=== PATIENT | male | born 1955 | race Caucasian/White ===

== ENCOUNTER 2021-10-31 13:43 | Outpatient (CLI) | payer MEDICARE, OTHER ==
--- NOTE | 2021-10-31 15:20 | XRAY Report ---
PROCEDURE: Ankle 3 View LT INDICATIONS: L ANKLE PX TECHNIQUE: 3 views of the ankle were acquired. COMPARISON: None FINDINGS: Bones: No acute fractures or dislocations. Chronic appearing calcifications are noted adjacent to th e medial malleolus. Similar findings noted along the medial aspect of the talus. Ankle mortise is nor margie aligned. No suspicious bony lesions. Fragmented posterior calcaneal enthesophyte. Soft tissues: No tibiotalar joint effusion. Achilles tendon appears normal. Moderate soft tissue s welling overlying the lateral malleolus. There are vascular calcifications. IMPRESSION: Left ankle without acute fracture or dislocation. Left lateral malleolar soft tissue swe lling. If there is persistent clinical concern for a radiographically occult fracture, recommend immobilizat ion and repeat imaging in 10 to 14 days. Reviewed by: Олег Lopez MD on 10/31/2021 3:19 PM PST Approved by: Олег Lopez MD on 10/31/2021 3:19 PM PST Station ID: [id number]
--- NOTE | 2021-10-31 17:11 | XRAY Report ---
PROCEDURE: Foot 3 View LT INDICATIONS: L FOOT PX TECHNIQUE: 3 views of the foot were acquired. COMPARISON: None. FINDINGS: Bones: No fractures or dislocations. There is mild degeneration of the first metatarsophalangeal dotty int as well as the interphalangeal joints. No suspicious bony lesions. Soft tissues: No tibiotalar joint effusion. Achilles tendon appears intact with a small enthesophyt e at its insertion. IMPRESSION: 1. Mild degeneration of the first metatarsophalangeal joint and the interphalangeal joints. Reviewed by: Asad Lao MD on 10/31/2021 5:10 PM [facility] Approved by: Asad Lao MD on 10/31/2021 5:10 PM [facility] Station ID: [id number]
== END 2021-10-31 23:59 | disposition home or self-care (01) ==
LOC: DI.N 13:43
PROVIDERS: ATTEND Family Medicine
DX: M19.072 Primary osteoarthritis, left ankle and foot (principal); M25.572 Pain in left ankle and joints of left foot